=== PATIENT | male | born 1970 | race Caucasian/White ===

== ENCOUNTER 2021-10-27 10:10 | Observation (INO) ==
--- NOTE | 2021-09-18 11:32 | PAT Medication Instructions ---
Medication Instructions Date of Service September 18, 2021 Home Medications atenolol 25 mg tablet 25 mg PO HS atenolol 50 mg tablet 50 mg PO QAM hydrochlorothiazide 25 mg tablet 25 mg PO QAM lorazepam 0.5 mg tablet 0.5 mg PO UD PRN potassium chloride 20 mEq tablet,extended release 20 meq PO QAM sertraline 100 mg tablet 100 mg PO QAM DO NOT take the morning of surgery hydrochlorothiazide 25 mg tablet 25 mg PO QAM potassium chloride 20 mEq tablet,extended release 20 meq PO QAM Take morning of surgery With a small sip of water, OTHERWISE NOTHING TO EAT OR DRINK AFTER MIDNIGHT: atenolol 50 mg tablet 50 mg PO QAM sertraline 100 mg tablet 100 mg PO QAM lorazepam 0.5 mg tablet 0.5 mg PO UD PRN (if needed) Take evening before surgery atenolol 25 mg tablet 25 mg PO HS lorazepam 0.5 mg tablet 0.5 mg PO UD PRN (if needed) Other Notes If you have any questions please call us at [phone] or [phone] or [phone] or [phone]
--- NOTE | 2021-09-22 14:36 | Anesthesiology Consultation ---
Date of Service September 22, 2021 Assessment & Plan (1) Encounter for pre-operative examination: Chart Review Chart Review: Acceptable Risk for Surgery (pending preop Covid testing results ) and Patient seen in Pre Admission Testing Per PAT appt on 09/22/21, patient denies any recent travel or large group activities. No known Covid positive exposures or Covid related symptoms. Pt did test Covid positive 08/24/21 (results scanned into chart)- had vomiting, diarrhea and cough- symptoms resolved with exception to mild residual cough. Pt is NOT vaccinated for Covid. Preop Covid testing scheduled 10/06/21= will await results. Educated on importance of self quarantining, social distancing and wearing mask in public for the patient one week prior to surgery and after Covid testing done History Surgery Operation Date: 10/08/21 07:30 Proposed Procedures p Robotic Laparoscopic Assisted Radical Nephrectomy (Left side) - Fabian Nazario MD Height/Weight Height: 6 ft Weight: 123.8 kg Allergies Allergy/AdvReac Type Severity Reaction Status Date / Time No Known Allergies Allergy Verified 09/22/21 13:32 Medications Home Medications Medication Instructions Recorded Confirmed Last Taken atenolol 25 mg tablet 25 mg PO HS 09/17/21 09/22/21 Unknown atenolol 50 mg tablet 50 mg PO QAM 09/17/21 09/22/21 Unknown hydrochlorothiazide 25 mg tablet 25 mg PO QAM 09/17/21 09/22/21 Unknown lorazepam 0.5 mg tablet 0.5 mg PO UD PRN 09/17/21 09/22/21 Unknown potassium chloride 20 mEq 20 meq PO QAM 09/17/21 09/22/21 Unknown tablet,extended release sertraline 100 mg tablet 100 mg PO QAM 09/17/21 09/22/21 Unknown Past Medical History Medical History (Updated 09/22/21 @ 15:27 by Jacklyn Min PA-C) Anxiety Gallstones No symptoms - incidental finding History of COVID-19 08/24/21 AT [facility] VOMITING, DIARRHEA, COUGH - HOSPITALIZED [facility] CURRENT SYMPTOM: COUGH IN THE MORNING- CONTINUES TO IMPROVE HTN (hypertension) Inguinal hernia RIGHT AND LEFT - STABLE- PRESENT X YEARS Renal mass LEFT KIDNEY , REASON FOR UPCOMING PROCEDURE Skipped heart beats Controlled with medications Sleep apnea CPAP/INCONSISTENT USE Exercise / Class Metabolic Activity II 4-5 Yardwork/Stairs/Walk up hill (one flight of stairs- no chest pain or SOB ) Past Family History Family History Sister FH: kidney cancer Mother Heart disease Uncle Heart disease Family history of diabetes mellitus Past Surgical History Surgical History H/O sinus surgery History of cardiac cath 2015- NO CAD - HAS FH OF HEART DISEASE Past Anesthesia History No Hx of Anesthesia Complications and No Family Hx of Anesthesia Complications History of PONV No Hx of PONV and No Hx of Motion Sickness Social History Smoking Status: Never smoker tobacco type: smokeless tobacco Do You Dip or Chew Tobacco: Yes (4-5 CHEWS PER DAY/ADVISED NPO) Hx Alcohol Use: Yes Alcohol type: beer alcohol intake frequency: 3 or more drinks per day Alcohol Intake Frequency Comment: 3-4 A DAY substance use type: marijuana Substance Use Type Other:: MARIJUANA ONCE IN AWHILE/NOT VERY OFTEN - LAST USE 2 MON AGO (ADVISED) Review of Systems Patient denies chest pain, shortness of breath, dyspnea on exertion, reflux, cough, wheezing, palpitations. No hx of seizures, stroke, IA No hx of blood clots or blood transfusions Physical Exam Vital Signs VITALS BP 122/80 P 81 TEMP 97.6 SP02 95% RESP 16 Constitutional no acute distress ENMT Mouth: no TMJ clicking Thyromental Distance: > or= 3.5 Finger Breadths (3.5) Mallampati Class: I Mouth / Teeth: 1. Missing Missing molars and side teeth on top and bottom Neck + short neck and + thick neck; neck extension not limited Respiratory normal respiratory effort; no respiratory distress Auscultation: lungs clear to auscultation bilaterally; no wheezes Cardiovascular Rate/Rhythm: regular rate and regular rhythm Heart Sounds: no murmur Vessels: no carotid bruit Musculoskeletal Spine: no pain with cervical ROM Extremities: extremities normal to inspection Psychiatric Orientation: alert Lab Results Anesthesia Preop Results Results Anesthesia Widget: WBC 10.32 K/uL (4.8-10.8) 09/22/21 Hgb 15.7 g/dL (14.0-18.0) 09/22/21 Hct 45.2 % (42-52) 09/22/21 Plt 238 K/uL (130-400) 09/22/21 Na 139 mmol/L (136-145) 09/22/21 K 4.2 mmol/L (3.5-5.1) 09/22/21 Cl 103 mmol/L (98-107) 09/22/21 CO2 31 mmol/L (21-32) 09/22/21 BUN 13 mg/dl (6-23) 09/22/21 Creat 0.90 mg/dl (0.6-1.4) 09/22/21 Fasting Glucose 82 mg/dl (70-99) 09/22/21 Blood Type A Positive 09/22/21 Antibody Screen NEGATIVE 09/22/21 Testing Laboratory Results 09/22/21= UA: Negative Electrocardiogram Date: 09/22/21 Findings: + NSR @ (77bpm) Nonspecific T wave abnormality. Prolonged QT Chest X-Ray Date: 09/23/21 Findings: + NAD Stress Test Date: 09/23/15 Type: nuclear Mild inferior wall myocardial ischemia (Had subsequent cardiac cath on 10/25/15- showed angiographically normal coronary arteries) Cardiac Catheterization Date: 10/22/15 LM = angiographically normal LAD = minimal luminal irregularities Left circumflex = angiographically normal. RCA = angiographically normal. Summary: Angiographically normal coronary arteries. Normal LV systolic function. Recommend medical management. Other Testing Chest CTA 08/24/21= No pulmonary embolus. No acute cardiopulmonary disease. No significant pulmonary nodules. No significant airspace consolidations or interstitial thickening
[~2021-10-27 10:10] MED LIST: LR 15ML/HR IV SCH
--- NOTE | 2021-10-27 11:21 | Anesthesiology Progress Note ---
Date of Service October 27, 2021 Anesthesia Post Procedure Vital Signs Vital Signs: Temp Pulse Resp BP Pulse Ox 10/27/21 10:29 36.6 C 73 20 138/94 97 Transfer of Care Handoff Completed per policy Notes Mental Status: alert / awake / arousable and participated in evaluation Patient Amnestic to Procedure: Yes Nausea / Vomiting: adequately controlled Pain: adequately controlled Airway Patency, RR, SpO2: stable & adequate BP & HR: stable & adequate Hydration State: stable & adequate Anesthetic Complications: no major complications apparent
[2021-10-27] MEDS ORDERED: fentaNYL citrate 100 MCG/2 ML VIAL IV PRN (11:23)
[2021-10-27] MEDS ORDERED: ATROPINE SULFATE 0.1 MG/ML 10ML SYR IV PRN (11:23)
[2021-10-27] MEDS ORDERED: HYDROmorphone INJ 2 MG/ML SYR/VIAL IV PRN (11:23)
[2021-10-27] MEDS ORDERED: PROMETHAZINE HCL 12.5 MG in SODIUM CHLORIDE 0.9% 50 ML IV PRN (11:23)
[2021-10-27] MEDS ORDERED: ONDANSETRON INJ 2 MG/ML 2 ML VIAL IV PRN ×2 (11:23→21:07)
[2021-10-27] MEDS ORDERED: ePHEDrine sulfate 50 MG/ML AMP IV PRN (11:23)
[2021-10-27] MEDS ORDERED: fentaNYL citrate 100 MCG/2 ML VIAL ONE (12:48)
[2021-10-27] MEDS ORDERED: MIDAZOLAM HCL 1 MG/ML 2ML VIAL ONE (12:48)
[2021-10-27] MEDS ORDERED: HYDROmorphone INJ 2 MG/ML SYR/VIAL ONE (12:50)
--- NOTE | 2021-10-27 13:24 | History & Physical Report ---
Date of Service October 27, 2021 Assessment & Plan (1) Renal mass: Plan: We reviewed his left-sided renal mass. We will plan for robot-assisted radical nephrectomy today. Risks and postoperative expectations were reviewed. History of Present Illness Primary Care Provider: Chip De Los Santos MD This is a 51-year-old male, recently evaluated in the urology office for left- sided renal mass. At that time, we discussed management options including biopsy, partial or radical nephrectomy. He elected to proceed with radical nephrectomy and he presents to the OR today for this procedure. He denies any change in his health. Allergies Allergy/AdvReac Type Severity Reaction Status Date / Time No Known Allergies Allergy Verified 10/27/21 10:34 Home Medications Medication Instructions Recorded Confirmed Type atenolol 25 mg tablet 25 mg PO HS 09/17/21 10/27/21 History atenolol 50 mg tablet 50 mg PO QAM 09/17/21 10/27/21 History hydrochlorothiazide 25 mg tablet 25 mg PO QAM 09/17/21 10/27/21 History lorazepam 0.5 mg tablet 0.5 mg PO UD PRN 09/17/21 10/27/21 History potassium chloride 20 mEq 20 meq PO QAM 09/17/21 10/27/21 History tablet,extended release sertraline 100 mg tablet 100 mg PO QAM 09/17/21 10/27/21 History Past Med/Surg History Medical History Anxiety Gallstones No symptoms - incidental finding History of COVID-19 08/24/21 AT [facility] VOMITING, DIARRHEA, COUGH - HOSPITALIZED [facility] CURRENT SYMPTOM: COUGH IN THE MORNING- CONTINUES TO IMPROVE HTN (hypertension) Inguinal hernia RIGHT AND LEFT - STABLE- PRESENT X YEARS Renal mass LEFT KIDNEY , REASON FOR UPCOMING PROCEDURE Skipped heart beats Controlled with medications Sleep apnea CPAP/INCONSISTENT USE Surgical History H/O sinus surgery History of cardiac cath 2015- NO CAD - HAS FH OF HEART DISEASE Family History Sister FH: kidney cancer Mother Heart disease Uncle Heart disease Family history of diabetes mellitus Social History Smoking Status: Never smoker Second Hand Exposure: Yes (); Do You Dip or Chew Tobacco: Yes (4-5 CHEWS PER DAY/ADVISED NPO); Hx Alcohol Use: Yes Alcohol type: beer Preferred Language: Indian Communication Ability: Effective Zipper Trimmer Required: No Beliefs That Will Affect Care: None marital status: Current Living Situation: Spouse Current Living Situation Comment: AND MOTHER current occupational status: employed current occupation: Auto How many Children do You have Comment: Handipoints Other Information That Helps Us Care for You: No Feels Safe at Home: Yes Assistive Devices: CPAP Assistive Devices Comment: CPAP/INCONSISTENT USE Review of Systems 14 point review of systems negative except for otherwise indicated. Physical Exam Constitutional: well developed and well nourished; no acute distress Eyes: + anicteric sclerae; pupils not irregular Respiratory: normal respiratory effort; no respiratory distress, does not use accessory muscles and no cough Cardiovascular: well perfused Gastrointestinal (Abdomen): Inspection/Auscultation: abdomen normal to inspection; abdomen not distended Musculoskeletal: Extremities: extremities normal to inspection Skin: normal turgor; no rashes and no lesions Neurologic: moves all extremities and awake Psychiatric: Orientation: alert and oriented x 3 Results & Data ([facility]) Vital Signs (Past 12 Hours) Vital Signs Temp Pulse Resp BP Pulse Ox 10/27/21 10:29 36.6 C 73 20 138/94 97
[2021-10-27] MEDS ORDERED: BUPIVACAINE 0.5 % 5 MG/1 ML MPF 30ML VIAL ONE (13:48)
[2021-10-27] MEDS ORDERED: GELATIN SPONGE SZ 100 ONE (13:48)
[2021-10-27] MEDS ORDERED: ONDANSETRON INJ 2 MG/ML 2 ML VIAL ONE ×2 (15:08→19:19)
[2021-10-27] MEDS ORDERED: LIDOCAINE 2% 2 ML VIAL/AMP(20MG/ML) INFIL ONE (15:08)
[2021-10-27] MEDS ORDERED: PROPOFOL IV EMULSION 10 MG/ML 20 ML VIAL IV ONE (15:08)
[2021-10-27] MEDS ORDERED: PHENYLEPHRINE 100MCG/ML 5ML SYR ONE (15:17)
[2021-10-27] MEDS ORDERED: ePHEDrine sulfate 50 MG/ML SYR ONE (15:17)
[2021-10-27] MEDS ORDERED: ROCURONIUM BROMIDE 10 MG/ML 5 ML VIAL IV ONE ×3 (15:18→17:54)
[2021-10-27] MEDS ORDERED: SURGICEL ABSORB HEMOSTAT 2IN X 14IN TOP ONE (16:14)
--- NOTE | 2021-10-27 17:21 | Communication Note ---
Date of Service: October 27, 2021 Anesthesia post-procedure note was entered in error at 1120. Please disregard. Procedure did not begin until after 1430.
[2021-10-27] MEDS ORDERED: FLOSEAL HEMOSTATIC MATRIX 10ML TOP ONE (18:05)
[2021-10-27] MEDS ORDERED: NEOSTIGMINE METHYLSULFATE 1 MG/ML 10ML VIAL ONE (18:08)
[2021-10-27] MEDS ORDERED: GLYCOPYRROLATE 0.2 MG/ML VIAL ONE (18:08)
--- NOTE | 2021-10-27 19:51 | Operative Report ---
PG Post Operative Report Pre & Post Diagnosis Operation Date: 10/27/21 11:30 Pre-Op Diagnosis: Left Renal Mass Post-Op Diagnosis: Left Renal Mass I identified the patient and participated in the time-out.: Yes Procedure Operation Date: 10/27/21 11:30 Actual Procedures p Robotic Assisted Laparoscopic Radical Left Nephrectomy (Left) - Fabian Nazario MD Surgeon Fabian Nazario MD [employer] XOCHILT Gonzalez Estimated Blood Loss 100 Findings Consistent with Post-Op Diagnosis Specimens Left kidney Drains Recinos catheter per urethra Anesthesia Type General Complications none Disposition Disposition: Recovery Room Indications This is a 51-year-old male, recently seen in the urology office with a left renal mass. Metastatic work-up was negative and he presents to the OR today for radical left nephrectomy. Description of Procedure Patient was identified and informed consent was confirmed. He was then brought to the operating room table where general anesthesia was initiated. He was placed in a relaxed lateral position, lying on the right side with the left side up. All pressure points were appropriately padded. His abdomen was prepped and draped in the usual sterile fashion and a timeout was then performed. A subcostal line was marked, approximately 8 cm lateral to the umbilicus. Anticipated port sites were marked, starting 2 cm below the costal margin and interspersed by 7 cm. Using the second anticipated port site, access was obtained by first making a skin incision and bluntly dissected down to the fascia. The Veress needle was entered into the abdominal cavity confirming good position with a negative aspiration, negative drop test and low opening pressure. The abdomen was insufflated to 15 mmHg with carbon dioxide. The first 8 mm robotic port was then placed and the camera WAs inserted. Upon inspection there were some adhesions on the left side. The lower 2 robotic ports were placed under direct visualization. The laparoscopic scissors were inserted through 1 of these ports and used to sharply take down the adhesions. The upper robotic port was then placed under direct visualization. A 15 mm timber management assistant port was then also placed above the umbilicus, under direct visualization. The robot was then docked. The left colon was reflected along the white line of Toldt to expose the contour of the kidney. The left gonadal vein was visible. Slightly above this level, the surrounding fatty tissue was entered sharply and then dissected to expose the ureter. Keeping upward tension on the ureter and surrounding tissue, dissection was carried up toward the kidney. At the level of the kidney, the gonadal vein was again identified and traced up to the hildum. At this point the hilum was identified and carefully dissected. There was a single renal artery as well as 2 prominent renal veins. One of the veins was directly overlying the artery. This was taken en bloc with a 45 mm vascular staple load. The second vein was carefully exposed to ensure there were no secondary renal arteries. Once we were confident that this was the only remaining vasculature, the second vein was divided with another 45 mm vascular staple load. The remaining attachments on the superior, posterior and lateral aspects of the kidney were then divided using a combination of sharp and blunt dissection with cautery. The inferior portion of the renal Cone was also divided in this manner. The ureter was identified and thoroughly cauterized prior to division. Once the kidney was completely freed up, it was placed in a 15 mm Endo Catch specimen bag. The resection site was thoroughly inspected and hemostasis was obtained. The bed was treated with Surgicel and FloSeal to help ensure hemostasis and at the end there was no evidence of any active bleeding. The robot was dedocked. The string to the Endo Catch bag was then withdrawn through the lowermost robotic port. This port incision was extended to approximately 10 cm. Dissection was carried down to the external oblique fascia. 0 Vicryl sutures were preplaced to facilitate future identification of this layer. Dissection was further carried down through the internal oblique and transversalis layers until the peritoneum was entered. The kidney was then extracted and sent for pathologic analysis labeled as "left kidney". The extraction site was then closed using a running 2-0 Vicryl suture combining the peritoneal and transversalis fascia as 1 layer. A series of interrupted [id number] sutures were placed in the internal and external obliques using 0 Vicryl suture. The subcutaneous fat was then reapproximated using 3-0 Vicryl. The skin edge and fascia were both anesthetized using 0.5% Marcaine. The skin was then closed using a running subcuticular 4-0 Monocryl suture. The 15 mm port site was closed with a deep 0 Vicryl suture. All remaining ports were anesthetized and closed with buried interrupted Monocryl sutures. The abdomen was then cleaned with sterile water and dried. Dermabond was applied to all incisions. The patient was then awakened from general anesthesia and was brought to the PACU in stable condition. I attest to the content of the Intraoperative Record and any orders documented therein. Any exceptions are noted below.
--- NOTE | 2021-10-27 20:19 | Anesthesiology Progress Note ---
Date of Service October 27, 2021 Anesthesia Post Procedure Vital Signs Vital Signs: Temp Pulse Pulse Resp BP BP Pulse Ox 10/27/21 20:10 88 18 109/76 94 10/27/21 20:00 83 20 109/66 95 10/27/21 19:52 36.5 C 77 21 105/70 94 10/27/21 10:29 36.6 C 73 20 138/94 97 Transfer of Care Handoff Completed per policy Notes Mental Status: alert / awake / arousable Patient Amnestic to Procedure: Yes Nausea / Vomiting: adequately controlled Pain: adequately controlled Airway Patency, RR, SpO2: stable & adequate BP & HR: stable & adequate Hydration State: stable & adequate Anesthetic Complications: no major complications apparent and Pt Satisfied with anesthetic care Notes: The patient is awake and comfortable. His vital signs are stable with SpO2 96 on 2 L NC. He may have some undiagnosed sleep apnea so will be placed on continuous pulse oximetry overnight.
[2021-10-27 20:22] LABS: Basophils # (auto) 0.01 K/uL (0-0.2); Basophils % (auto) 0.1 %; Eosinophils # (auto) 0.01 K/uL (0-0.5); Eosinophils % (auto) 0.1 %; Hematocrit (blood only) 46.6 % (42-52); Hemoglobin 16.4 g/dL (14.0-18.0); Immature Granulocytes # (auto) 0.04 K/uL (0.00-0.02); Immature Granulocytes % (auto) 0.3 %; Lymphocytes # (auto) 0.73 K/uL (1.2-3.4); Lymphocytes % (auto) 5.2 %; Mean Corpuscular Volume 96.5 fL (80-100); Mean Platelet Volume 9.5 fL (7.4-10.4); Monocytes # (auto) 0.21 K/uL (0.11-0.59); Monocytes % (auto) 1.5 %; Neutrophils # (auto) 12.98 K/uL (1.4-6.5); Neutrophils % (auto) 92.8 %; Platelet Count 205 K/uL (130-400); RDW Coefficient of Variation 13.6 % (11.5-14.5); RDW Standard Deviation 47.9 fL (36.4-46.3); Red Blood Count 4.83 M/uL (4.7-6.1); White Blood Count 13.98 K/uL (4.8-10.8)
[2021-10-27 20:26] LABS: Mean Corpuscular Hgb Conc 35.2 g/dL (32-36)
[2021-10-27 20:41] LABS: BUN Creatinine Ratio 12.3 (10-20); Calcium 8.4 mg/dl (8.5-10.1); Creatinine Clr Calc Pharmacy 89.6 ml/min; Est GFR (African American) 72.7 ml/min; Est GFR (Non-African American) 62.7 ml/min; Potassium 4.3 mmol/L (3.5-5.1)
[2021-10-27] MEDS ORDERED: oxyCODONE HCL IR 5 MG TAB (IMMEDIATE RELEASE) PO PRN (21:07)
[2021-10-27] MEDS ORDERED: LORazepam 0.5 MG TAB PO PRN (21:07)
[2021-10-27] MEDS ORDERED: MoRPHine SULFATE 2 MG/ML CARP IV PRN (21:07)
[2021-10-27] MEDS ORDERED: ACETAMINOPHEN 325 MG TAB PO PRN (21:07)
[2021-10-27] MEDS ORDERED: ATENOLOL 25 MG TABLET PO SCH (21:30)
[2021-10-27] MEDS: MoRPHine SULFATE 4 MG/ML 1 ML CARP\\VIAL IV PRN (21:33)
[2021-10-27] MEDS: LACTATED RINGER'S 1,000 ML IV SCH (21:33)
[2021-10-27] MEDS: oxyCODONE HCL IR 5 MG TAB (IMMEDIATE RELEASE) PO PRN (21:44)
[2021-10-27] MEDS: HEPARIN SOD 5,000 UNIT/0.5 ML VIAL SQ SCH (22:44)
[2021-10-28] MEDS: MoRPHine SULFATE 4 MG/ML 1 ML CARP\\VIAL IV PRN ×2 (01:50→07:48)
[2021-10-28] MEDS: oxyCODONE HCL IR 5 MG TAB (IMMEDIATE RELEASE) PO PRN ×2 (01:50→17:59)
[2021-10-28] MEDS: LACTATED RINGER'S 1,000 ML IV SCH (07:42)
[2021-10-28] MEDS ORDERED: SERTRALINE HCL 100 MG TABLET PO SCH (09:00)
[2021-10-28] MEDS ORDERED: hydroCHLOROthiazide 25 MG TAB PO SCH (09:00)
[2021-10-28] MEDS ORDERED: POTASSIUM CHLORIDE CRTAB 20 MEQ TABCR PO SCH (09:00)
[2021-10-28] MEDS ORDERED: DOCUSATE SODIUM 100 MG CAP PO SCH (09:00)
[2021-10-28] MEDS ORDERED: ATENOLOL 50 MG TABLET PO SCH (09:00)
[2021-10-28 09:07] LABS: Basophils # (auto) 0.01 K/uL (0-0.2); Basophils % (auto) 0.1 %; Hematocrit (blood only) 43.1 % (42-52); Hemoglobin 15.1 g/dL (14.0-18.0); Immature Granulocytes # (auto) 0.02 K/uL (0.00-0.02); Immature Granulocytes % (auto) 0.1 %; Lymphocytes # (auto) 1.23 K/uL (1.2-3.4); Lymphocytes % (auto) 8.6 %; Mean Corpuscular Hemoglobin 34.3 pg (25-34); Mean Platelet Volume 9.8 fL (7.4-10.4); Monocytes # (auto) 1.51 K/uL (0.11-0.59); Monocytes % (auto) 10.5 %; Neutrophils # (auto) 11.55 K/uL (1.4-6.5); Neutrophils % (auto) 80.7 %; Platelet Count 224 K/uL (130-400); RDW Coefficient of Variation 13.5 % (11.5-14.5); RDW Standard Deviation 48.1 fL (36.4-46.3); White Blood Count 14.32 K/uL (4.8-10.8)
[2021-10-28 09:32] LABS: BUN Creatinine Ratio 12.1 (10-20); Creatinine Clr Calc Pharmacy 78.2 ml/min; Est GFR (African American) 61.7 ml/min; Est GFR (Non-African American) 53.2 ml/min
[2021-10-28] MEDS: HEPARIN SOD 5,000 UNIT/0.5 ML VIAL SQ SCH (12:06)
--- NOTE | 2021-10-28 15:35 | Urology Progress Note ---
Date of Service October 28, 2021 Assessment & Plan (1) Kidney tumor: Plan: Recovering appropriately s/p left radical nephrectomy. Meeting milestones for discharge. We reviewed restrictions for going home and what to expect for recovery. We will plan for discharge this afternoon. Admission and Anticipated Discharge Date Admission Date: October 27, 2021 Subjective Patient was having some pain this morning but feeling better this afternoon Has been able to tolerate solid food without nausea or vomiting Has been up and ambulating Recinos catheter was removed this morning and he has been able to void. Review of Systems Review of Systems: 14 point review of systems negative except for otherwise indicated. Physical Exam Physical Exam: Well-appearing, tired, NAD Respiratory: Breathing comfortably on room air Gastrointestinal (Abdomen): Soft, nondistended, appropriately tender to palpation in the left lower quadrant over the extraction site, lap incisions closed with Dermabond, mild bruising. Results & Data ([facility]) Vital Signs (Past 12 Hours) Vital Signs Temp Pulse Pulse Resp BP Pulse Ox 10/28/21 15:10 36.9 C 71 18 122/71 93 10/28/21 07:52 36.6 C 77 20 120/73 96 10/28/21 04:04 36.5 C 76 20 122/70 95 PG Care Time/CCT Total # of Minutes Spent Total Time Spent with Patient: Total time spent is greater than 50% in coordination of care (as documented) at patient's floor/unit and/or counseling patient: Coding Level of Care Code None Diagnoses Kidney tumor D49.519
--- NOTE | 2021-10-28 15:55 | Discharge Summary ---
Date of Service October 28, 2021 Admission HPI Per Admitting Provider This is a 51-year-old male, recently evaluated in the urology office for left- sided renal tumor of unclear prognosis. At that time, we discussed management options including biopsy, partial or radical nephrectomy. He elected to proceed with radical nephrectomy and presented to the hospital on 10/27/2021 for this procedure. Postoperatively he was admitted in stable condition. Admission Exam Per Admitting Provider Constitutional: well developed and well nourished; no acute distress Eyes: + anicteric sclerae; pupils not irregula r Respiratory: normal respiratory effort; no respiratory distress, does not use accessory muscles and no cough C Cardiovascular: well perfused Gastrointestinal (Abdomen): Inspection/Auscultation: abdomen normal to inspection; abdomen not distended Musculoskeletal: Extremities: extremities normal to inspection Skin: normal turgor; no rashes and no lesions Neurologic: moves all extremities and awake Psychiatric: Orientation: alert and oriented x 3 Principal Diagnosis Kidney tumor of unknown prognosis Discharge Exam Well-appearing, tired, NAD Gastrointestinal (Abdomen) Abdomen soft, appropriately tender to palpation, incisions approximated with Dermabond in place. Genitourinary Catheter removed, voiding well Discharge Data Allergies Allergy/AdvReac Type Severity Reaction Status Date / Time No Known Allergies Allergy Verified 10/27/21 10:34 Procedures Performed Operation Date: 10/27/21 11:30 Actual Procedures p Robotic Assisted Laparoscopic Radical Left Nephrectomy (Left) - Fabian Nazario MD Hospital Course (1) Kidney tumor: He underwent robot-assisted radical nephrectomy for the left kidney on 10/27/2021 and was admitted post operatively in good condition postoperatively. On post-op day 1, he was tolerating a diet, ambulating and his pain was under control. He was discharged home in good condition. Total Time Total Time Spent Total Time Spent (In Minutes): 15 Total Time Includes: Examination of the Patient and Medication Reconciliation Discharge Plan Discharge Items Patient Disposition: Home - Self-Care Reason For Visit: Renal Mass Discharge Diagnosis: Kidney tumor of uncertain prognosis Activity: Per Instructions section Non-emergency contact: Urologist Call non-emergency contact if: your pain is not controlled and your temperature is above 101 Follow-up/Referrals: Chip De Los Santos MD [Primary Care Provider] - Diet: Regular Addtl Attending Provider Instructions: The surgery you had was: Robot-assisted radical nephrectomy Please take all medications as prescribed and keep all follow-ups as scheduled. Please call our office at [phone] with any questions, concerns or need to reschedule appointments for any reason. We are happy to assist you. Medications: Take Tylenol every 6 hours for baseline pain control If you are prescribed narcotics such as oxycodone, please take it according to the instructions on the label. Activity/Recovering at home: We recommend having someone with you for the first few days after surgery to help care for you. It is okay to shower tomorrow. Please avoid swimming, bathing or using hot tub until incisions are well healed. Avoid driving until you are not requiring pain medication any further. Walk at least a few times a day. Increase your distance, as you feel able. Stairs in your home are okay. Please avoid strenuous or sexual activity until your follow-up. No lifting anything more than 10 pounds for 6 to 8 weeks Use a stool softener (i.e. Colace) to prevent constipation, especially the first two weeks post operatively. You should not be straining/pushing to have a bowel movement. Follow-up: We will have you come to the urology office in 3 to 4 weeks for a wound check. Call [facility] at [phone] if you experience: Chest pain or trouble breathing (call [phone] or go to the hospital). Fever of 101F or higher Symptoms of infection at incision site, including redness or swelling, warmth, or bad-smelling drainage Pain that is not controlled with medicines Pending Studies at Discharge: No Stand-Alone Forms: My [facility], Smoking Cessation Medications and DC Order Prescriptions: New oxycodone 5 mg capsule 5 mg PO Q6H Qty: 15 RF: 0 Continued sertraline 100 mg Tablet 100 mg PO QAM RF: 0 atenolol 25 mg Tablet 25 mg PO HS RF: 0 lorazepam 0.5 mg Tablet 0.5 mg PO UD PRN (Reason: Anxiety) RF: 0 hydrochlorothiazide 25 mg Tablet 25 mg PO QAM RF: 0 atenolol 50 mg Tablet 50 mg PO QAM RF: 0 potassium chloride 20 mEq Tablet Extended Release 20 meq PO QAM RF: 0 Discharge Orders: Discharge Order (Routine); Ordered 10/28/21 Ordered By: Fabian Nazario Admission Data Admit Date/Time: 10/27/21 19:53 Attending Provider: Fabian Nazario Admit Provider: Fabian Nazario Primary Care Provider: Chip De Los Santos Coding Level of Care Code D/C DAY MANAGEMENT <30 MINS Diagnoses Kidney tumor D49.519
== END 2021-10-28 18:24 | disposition home or self-care (01) ==
LOC: ASU 10:10 → INTOOBSV 19:53 → 3N 19:53